=== PATIENT | male | born 1960 | race Caucasian/White ===

== ENCOUNTER 2018-07-28 10:41 | Emergency (ER) | payer MEDICARE, MEDICAID ==
[2018-07-28 10:47] VITALS: TEMP 97.9
[2018-07-28 11:24] VITALS: BP 108/77; PULSE 70; RESP 18; O2SAT 94
== END 2018-07-28 12:30 | DRG 948 ==
LOC: ED 10:41
DX: R41.82 Altered mental status, unspecified (principal); Z79.01 Long term (current) use of anticoagulants; R40.2362 Coma scale, best motor response, obeys commands, at arrival to emergency department; R40.2142 Coma scale, eyes open, spontaneous, at arrival to emergency department; R40.2252 Coma scale, best verbal response, oriented, at arrival to emergency department
CPT/HCPCS: 99282; 99283